=== PATIENT | female | born 1980 | race African-American/Black ===

== ENCOUNTER 2021-09-21 23:38 | Inpatient (IN) ==
[2021-09-21] MEDS ORDERED: propofoL 200 MG/20 ML VIAL IV ONE (23:47)
[2021-09-21] MEDS ORDERED: propofoL 200 MG/20 ML VIAL IV STA (23:49)
[2021-09-22] MEDS ORDERED: propofoL 200 MG/20 ML VIAL IV STA (00:20)
[2021-09-22] MEDS ORDERED: ONDANSETRON 4 MG/2 ML VIAL IV PRN (00:32)
[2021-09-22] MEDS: HYDROmorphone 1 MG/1 ML SYRINGE IV PRN ×2 (02:49→07:30)
[2021-09-22] MEDS: ceFAZolin 2,000 MG/50 ML DUPLEX IV SCH ×2 (09:30→16:55)
[2021-09-22 09:59] LABS: Basophils % 0.3 % (0.0-0.8); Hematocrit 34.9 VOL% (35.7-47.0); Hemoglobin 11.3 GM/DL (12.0-16.0); Immature Granulocytes % 0.3 %; Immature Granulocytes Absolute 0.03 #; Lymphocytes # 2.5 10*3/uL (1.4-4.0); Lymphocytes % 29.1 % (21.3-54.2); Mean Corpuscular HGB Conc 32.4 GM/DL (32-36); Mean Corpuscular Volume 92.8 FL (87-102); Mean Platelet Volume 10.2 FL (9.6-12.0); Monocytes # 0.4 10*3/uL (0.11-0.8); Monocytes % 5.1 % (1.7-12.7); Neutrophils % 65.2 % (38.7-73.9); Platelet Count 340 T/CUMM (130-400); Red Blood Count 3.76 MC/CUMM (3.8-5.5); Red Cell Distribution Width 13.9 % (9.3-17.3); White Blood Count 8.7 T/CUMM (4-12)
[2021-09-22 10:07] LABS: Calcium 8.5 MG/DL (8.5-10.1); Potassium 3.4 MMOL/L (3.5-5.1)
[2021-09-22] MEDS ORDERED: fentaNYL 100 MCG/2 ML VIAL ONE ×4 (10:55→12:57)
[2021-09-22] MEDS ORDERED: MIDAZOLAM 2 MG/2 ML VIAL ONE (10:55)
[2021-09-22] MEDS ORDERED: LIDOCAINE 2% 5 ML VIAL ONE (10:55)
[2021-09-22] MEDS ORDERED: ONDANSETRON 4 MG/2 ML VIAL ONE (10:55)
[2021-09-22] MEDS ORDERED: SEVOFLURANE 1 UNIT/15 MINUTE INH ONE (10:55)
[2021-09-22] MEDS ORDERED: propofoL 200 MG/20 ML VIAL IV ONE (10:55)
[2021-09-22] MEDS ORDERED: ROCURONIUM 50 MG/5 ML VIAL IV ONE (10:56)
[2021-09-22] MEDS ORDERED: SUCCINYLCHOLINE 200 MG/10 ML VIAL ONE (10:56)
[2021-09-22] MEDS ORDERED: ceFAZolin 1,000 MG VIAL ONE (11:30)
[2021-09-22] MEDS ORDERED: ALBUTEROL INHALER 18 GM INH ONE (11:58)
[2021-09-22] MEDS ORDERED: GLYCOPYRROLATE 0.4 MG/2 ML VIAL ONE (12:53)
[2021-09-22] MEDS ORDERED: NEOSTIGMINE 10 MG/10 ML VIAL ONE (12:53)
[2021-09-22] MEDS ORDERED: ACETAMINOPHEN INJ 1,000 MG/100 ML VIAL IV ONE (12:53)
[2021-09-22] MEDS ORDERED: KETOROLAC 30 MG/1 ML VIAL ONE (12:57)
[2021-09-22] MEDS ORDERED: MAGNESIUM HYDROXIDE SUSP 30 ML UDCUP PO PRN (13:28)
[2021-09-22] MEDS ORDERED: ROPIVACAINE 0.5% 30 ML VIAL ONE (13:38)
[2021-09-22] MEDS ORDERED: HYDROmorphone 1 MG/1 ML SYRINGE IV PRN (15:01)
[2021-09-22] MEDS: hydroCHLOROthiazide 25 MG TABLET PO SCH (21:16)
[2021-09-23] MEDS: ceFAZolin 2,000 MG/50 ML DUPLEX IV SCH ×4 (00:30→23:24)
[2021-09-23 06:38] LABS: Basophils % 0.2 % (0.0-0.8); Eosinophils % 0.3 % (0.00-10.9); Hematocrit 32.7 VOL% (35.7-47.0); Hemoglobin 10.4 GM/DL (12.0-16.0); Immature Granulocytes % 0.3 %; Immature Granulocytes Absolute 0.03 #; Lymphocytes # 3.7 10*3/uL (1.4-4.0); Lymphocytes % 40.7 % (21.3-54.2); Mean Corpuscular HGB Conc 31.8 GM/DL (32-36); Mean Corpuscular Volume 93.4 FL (87-102); Mean Platelet Volume 10.2 FL (9.6-12.0); Monocytes # 0.7 10*3/uL (0.11-0.8); Monocytes % 7.9 % (1.7-12.7); Neutrophils % 50.6 % (38.7-73.9); Platelet Count 283 T/CUMM (130-400); White Blood Count 9.1 T/CUMM (4-12)
[2021-09-23 06:47] LABS: Calcium 8.9 MG/DL (8.5-10.1); Osmolality,Calculated 276.3 MOS/KG (273-304); Potassium 2.8 MMOL/L (3.5-5.1)
[2021-09-23 07:19] LABS: Eosinophils 1 % (0-10); Lymphocytes 29 % (20-55); Platelet Estimate Normal; Total Cells Counted 100
[2021-09-23] MEDS: hydroCHLOROthiazide 25 MG TABLET PO SCH ×2 (08:33→21:19)
[2021-09-23] MEDS: PANTOPRAZOLE 40 MG TABLET PO SCH (08:34)
[2021-09-23] MEDS: POTASSIUM CHLORIDE 20 MEQ TABLET PO SCH (08:34)
[2021-09-23] MEDS: ENOXAPARIN 40 MG/0.4 ML SYRINGE SUBCUT SCH (08:52)
[2021-09-23] MEDS: POTASSIUM CHLORIDE 20 MEQ TABLET PO PRN ×3 (11:21→17:35)
[2021-09-24] MEDS: POTASSIUM CHLORIDE 20 MEQ TABLET PO PRN ×2 (00:30→02:15)
[2021-09-24 05:26] LABS: Basophils % 0.3 % (0.0-0.8); Eosinophils % 0.4 % (0.00-10.9); Hematocrit 34.6 VOL% (35.7-47.0); Hemoglobin 11.1 GM/DL (12.0-16.0); Immature Granulocytes % 0.5 %; Immature Granulocytes Absolute 0.05 #; Lymphocytes # 2.8 10*3/uL (1.4-4.0); Lymphocytes % 29.8 % (21.3-54.2); Mean Corpuscular HGB Conc 32.1 GM/DL (32-36); Mean Corpuscular Volume 92.8 FL (87-102); Mean Platelet Volume 10.2 FL (9.6-12.0); Monocytes # 0.8 10*3/uL (0.11-0.8); Monocytes % 8.2 % (1.7-12.7); Neutrophils % 60.8 % (38.7-73.9); Platelet Count 321 T/CUMM (130-400); Red Blood Count 3.73 MC/CUMM (3.8-5.5); Red Cell Distribution Width 13.7 % (9.3-17.3); White Blood Count 9.4 T/CUMM (4-12)
[2021-09-24] MEDS: ceFAZolin 2,000 MG/50 ML DUPLEX IV SCH ×2 (09:06→16:38)
[2021-09-24] MEDS: PANTOPRAZOLE 40 MG TABLET PO SCH (09:07)
[2021-09-24] MEDS: POTASSIUM CHLORIDE 20 MEQ TABLET PO SCH (09:08)
[2021-09-24] MEDS: hydroCHLOROthiazide 25 MG TABLET PO SCH ×2 (09:08→21:08)
[2021-09-24] MEDS: ENOXAPARIN 40 MG/0.4 ML SYRINGE SUBCUT SCH (09:12)
[2021-09-25] MEDS: ceFAZolin 2,000 MG/50 ML DUPLEX IV SCH ×2 (00:21→08:15)
[2021-09-25 05:04] LABS: Basophils % 0.4 % (0.0-0.8); Eosinophils # 0.1 10*3/uL (0.0-0.87); Eosinophils % 0.9 % (0.00-10.9); Hematocrit 35.6 VOL% (35.7-47.0); Hemoglobin 11.7 GM/DL (12.0-16.0); Immature Granulocytes % 0.4 %; Immature Granulocytes Absolute 0.03 #; Lymphocytes # 2.5 10*3/uL (1.4-4.0); Lymphocytes % 31.6 % (21.3-54.2); Mean Corpuscular HGB Conc 32.9 GM/DL (32-36); Mean Corpuscular Volume 92.5 FL (87-102); Mean Platelet Volume 10.1 FL (9.6-12.0); Monocytes # 0.5 10*3/uL (0.11-0.8); Monocytes % 5.7 % (1.7-12.7); Platelet Count 324 T/CUMM (130-400); Red Blood Count 3.85 MC/CUMM (3.8-5.5); Red Cell Distribution Width 13.5 % (9.3-17.3); White Blood Count 7.9 T/CUMM (4-12)
[2021-09-25] MEDS: hydroCHLOROthiazide 25 MG TABLET PO SCH (08:16)
[2021-09-25] MEDS: PANTOPRAZOLE 40 MG TABLET PO SCH (08:16)
[2021-09-25] MEDS: ENOXAPARIN 40 MG/0.4 ML SYRINGE SUBCUT SCH (08:17)
[2021-09-25] MEDS: POTASSIUM CHLORIDE 20 MEQ TABLET PO SCH (08:17)
[2021-09-25 11:48] VITALS: BP 136/69
== END 2021-09-25 11:50 | disposition home or self-care (01) | DRG 313 ==
LOC: N.ED 23:38 → N.EDINP 09-22 00:32 → N.3E 09-22 06:38
PROVIDERS: ADMIT Orthopaedic Surgery; ATTEND Orthopaedic Surgery